=== PATIENT | female | born 1960 | race Caucasian/White ===

== ENCOUNTER 2021-09-28 06:56 | Emergency (ER) | payer BC ==
[2021-09-28] MEDS ORDERED: Ondansetron 4 MG/2 ML SDV IVPUSH ONE (07:29)
[2021-09-28] MEDS ORDERED: Sodium Chloride 0.9% 10 ML Syringe FLUSH PRN (07:29)
[2021-09-28] MEDS ORDERED: Sodium Chloride 0.9% 1,000 ML IV SCH (07:30)
[2021-09-28] MEDS ORDERED: Ondansetron 4 MG/2 ML SDV ONE (07:49)
[2021-09-28] MEDS ORDERED: Sodium Chloride 0.9% 1,000 ML IV ONE (09:22)
[2021-09-28] MEDS ORDERED: LORazepam 1 MG Tab PO ONE (09:22)
[2021-09-28] MEDS ORDERED: Dicyclomine 10 MG Cap PO ONE (09:22)
== END 2021-09-28 11:05 | disposition home or self-care (01) ==
LOC: JD.ED 06:56
DX: U07.1 COVID-19 (principal); R10.84 Generalized abdominal pain; I10 Essential (primary) hypertension
CPT/HCPCS: 36415; 71045; 80053; 83690; 85025; 85379; 86140; 96374; 99284; A9270; J2405; J7030; 99285

== ENCOUNTER 2024-08-23 06:42 | Day surgery (SDC) | payer BC ==
[~2024-08-23 06:42] MED LIST: Sodium Chloride 0.9% 10 ML Syringe FLUSH PRN; Sodium Chloride 0.9% 10 ML Syringe FLUSH SCH
[2024-08-23] MEDS: Lactated Ringers 1,000 ML IV SCH (07:10)
[2024-08-23] MEDS ORDERED: Propofol 200 MG/20 ML SDV ONE ×2 (07:13)
== END 2024-08-23 08:32 | disposition home or self-care (01) ==
LOC: JD.SDS 06:42
PROVIDERS: ATTEND Surgery
DX: Z12.11 Encounter for screening for malignant neoplasm of colon (principal); K31.7 Polyp of stomach and duodenum; K21.9 Gastro-esophageal reflux disease without esophagitis; K64.0 First degree hemorrhoids; F41.9 Anxiety disorder, unspecified; I10 Essential (primary) hypertension; E78.00 Pure hypercholesterolemia, unspecified; E03.9 Hypothyroidism, unspecified; Z79.890 Hormone replacement therapy; Z79.899 Other long term (current) drug therapy
CPT/HCPCS: 43239; 45378; J2704; J7120; 00813